=== PATIENT | male | born 1975 | race Caucasian/White ===

== ENCOUNTER 2025-03-31 11:28 | Outpatient (CLI) | payer MEDICAID ==
--- NOTE | 2025-03-31 13:44 | RADIOLOGY REPORT ---
Procedure: CT CT LOWER EXTREMITY 03/31/2025 11:46 AM Indication: PAIN IN L FOOT Comparison Study: None Technique: Axial CT images were obtained and reformatted in coronal and sagittal planes of the left f oot. All CT scans at this medical facility are performed using dose modulation techniques as appropri ate to a performed exam including the following: Automated exposure control was utilized; adjustment of the MA and/or KV according to patient size; and use of iterative reconstruction technique. CT Dose : CTDI volume is 14.36 x 4 +0.14 mGy. Dose-length product is 537.33 mGy*cm FINDINGS: Bones: Slight bony demineralization. There is a comminuted displaced fracture of the calcaneus. Multi ple fracture lines demonstrate intra-articular extension to the subtalar joint. Normal alignment. Lavinia int spaces preserved. Soft tissues: Overlying soft tissues are intact. Visualized tendons and ligaments are grossly unrema rkable although not optimally evaluated by CT. The Muscle bundles are intact. IMPRESSION: Moderately comminuted fracture of the calcaneus with multiple fracture lines demonstrating intra-reji cular extension to the subtalar joint.
== END 2025-03-31 23:59 | disposition home or self-care (01) ==
LOC: RAD 11:28
PROVIDERS: ATTEND Podiatrist Foot & Ankle Surgery
DX: S92.002A Unspecified fracture of left calcaneus, initial encounter for closed fracture (principal); M79.672 Pain in left foot; M77.32 Calcaneal spur, left foot; X58.XXXA Exposure to other specified factors, initial encounter; Y93.9 Activity, unspecified; Y92.89 Other specified places as the place of occurrence of the external cause; Y99.8 Other external cause status
CPT/HCPCS: 73700